=== PATIENT | female | born 1960 | race Caucasian/White ===

== ENCOUNTER → 2017-07-14 | Outpatient (CLI) | payer OTHER ==
[~2017-07-14] MED LIST: ACID CONTROLLER10 MG PO; CHILD ASPIRIN81 M1 PO; D3 + K2 DOTS 11 EACH PO; ESTRACE0.5 MG PO; FOLBIC RF TABL1 EACH PO; MEGA BIOTIN10000 MCG PO
== END | disposition home or self-care (01) ==
LOC: AMB 07-03 11:00
PROC: 0HBHXZZ Excision of Right Upper Leg Skin, External Approach (ICD-10-PCS; principal; 2017-07-14)
DX: L72.0 Epidermal cyst (principal)
CPT/HCPCS: 88304

== ENCOUNTER 2017-10-09 12:06 | Day surgery (SDC) | payer OTHER ==
[~2017-10-09] VITALS: Ht 165.1 cm; Wt 65.2 kg
[~2017-10-09 12:06] MED LIST changes: +ALORA1 EAC4 TP; +CYANOCOBALAM1000 MCG PO; -D3 + K2 DOTS 11 EACH PO; -ESTRACE0.5 MG PO; -FOLBIC RF TABL1 EACH PO; +VITAMIN D-32000 UNI2 PO
[2017-10-09 12:26] VITALS: BP 128/63
[2017-10-09 15:00] VITALS: BP 116/53
== END 2017-10-09 15:25 | disposition home or self-care (01) ==
LOC: SDC 12:06
DX: H69.83 Other specified disorders of Eustachian tube, bilateral (principal); K21.9 Gastro-esophageal reflux disease without esophagitis; J30.9 Allergic rhinitis, unspecified; H91.8X9 Other specified hearing loss, unspecified ear; Z79.82 Long term (current) use of aspirin; Z82.49 Family history of ischemic heart disease and other diseases of the circulatory system; Z83.49 Family history of other endocrine, nutritional and metabolic diseases; Z82.61 Family history of arthritis
CPT/HCPCS: J0330; J1100; J2250; J2405; J3010; Q0175